=== PATIENT | male | born 1990 | race Caucasian/White ===

== ENCOUNTER 2018-09-12 06:18 | Day surgery (SDC) | payer MEDICAID ==
[~2018-09-12] VITALS: Ht 170.2 cm; Wt 66.5 kg
[~2018-09-12 06:18] MED LIST: CEFD300C37 PO; DARB100V SQ; GUAI200T3 PO; HYDR-3237 PO; PRED20TA PO
[2018-09-12 06:46] VITALS: BP 121/85
[2018-09-12] MEDS ORDERED: SODIUM CHLORIDE 0.9% 1,000 ML IV SCH (06:48)
[2018-09-12 07:30] LABS: INTERNATIONAL NORMALIZED RATIO 0.96 (0.93-1.1)
[2018-09-12] MEDS ORDERED: LIDOCAINE-MPF 1%, 5ML ONE (07:34)
[2018-09-12] MEDS ORDERED: FLUMAZENIL 0.1 MG/1 ML, 5ML ONE (07:39)
[2018-09-12] MEDS ORDERED: FENTANYL PF 100 MCG/2ML ONE (07:39)
[2018-09-12] MEDS ORDERED: NALOXONE 1 MG/ML, 2ML ONE (07:39)
[2018-09-12] MEDS ORDERED: MIDAZOLAM 1 MG/ML, 5ML ONE (07:39)
== END 2018-09-12 10:25 | disposition home or self-care (01) ==
LOC: OUT 06:18 → EDSTATUS 07:30 → OUT 10:25
PROVIDERS: ATTEND Internal Medicine Nephrology
DX: N18.3 Chronic kidney disease, stage 3 (moderate) (principal); N26.9 Renal sclerosis, unspecified; N20.0 Calculus of kidney; J32.9 Chronic sinusitis, unspecified; I12.9 Hypertensive chronic kidney disease with stage 1 through stage 4 chronic kidney disease, or unspecified chronic kidney disease; Z79.899 Other long term (current) drug therapy; Z88.8 Allergy status to other drugs, medicaments and biological substances; Z86.19 Personal history of other infectious and parasitic diseases; Z79.01 Long term (current) use of anticoagulants
CPT/HCPCS: 36415; 50200; 77012; 85610; 88300; 99156; 99157; J2250; J3010; J7030; J2310

== ENCOUNTER 2021-05-29 19:19 | Emergency (ER) | payer MEDICAID ==
[~2021-05-29] VITALS: Ht 167.6 cm; Wt 69.1 kg
[~2021-05-29 19:19] MED LIST changes: -GUAI200T3 PO; +GUAI200T37 PO; +LISI2.5T PO
[2021-05-29 19:32] VITALS: BP 173/102
--- NOTE | 2021-05-29 19:44 | NUR ---
PT PRESENTS TO ER FOR TOOTH PAIN, PT HAS A BROKEN TOOTH ON HIS RIGHT LOWER JAW AND IS IN A LOT OF PAIN, PT STATES THIS TOOTH HAS BEEN BROKEN FOR 5 YEARS, PT SUFFERS FROM AUTOIMMUNE DISEASE AND IS WORRIED ABOUT GETTING HIS TOOTH INFECTED
[2021-05-29] MEDS ORDERED: HYDROcodone/APAP 5/325 TABLET ONE (19:49)
[2021-05-29] MEDS ORDERED: HYDROcodone/APAP 5/325 TABLET PO ONE (20:00)
== END 2021-05-29 20:12 | disposition home or self-care (01) ==
LOC: ED 19:30
DX: K02.9 Dental caries, unspecified (principal)
CPT/HCPCS: 99283